=== PATIENT | male | born 1980 | race Hispanic/Latino ===

== ENCOUNTER 2019-07-10 10:21 | Emergency (ER) | payer SELFPAY ==
[~2019-07-10 10:21] MED LIST: ALBU6.7H9 IH; AMOX-429 PO; SULF1TAB42 PO; TYL3 PO
[2019-07-10] MEDS ORDERED: DIAZEPAM 5 MG TABLET ONE (10:49)
[2019-07-10] MEDS ORDERED: ASPIRIN 325 MG TABLET ONE (10:49)
[2019-07-10 11:07] LABS: BASOPHILS % (AUTO) 0.8 % (0.0-5.0); EOSINOPHILS % (AUTO) 0.7 % (0.0-8.0); HEMATOCRIT 36.7 % (42-54); LYMPHOCYTES % (AUTO) 20.2 % (21.0-51.0); MEAN CORPUSCULAR HEMOGLOBIN 33.5 pg (27.0-33.0); MEAN CORPUSCULAR HGB CONC 33.9 g/dL (32.0-36.0); MEAN CORPUSCULAR VOLUME 99.1 fL (79-99); MONOCYTES % (AUTO) 15.5 % (3.0-13.0); NEUTROPHILS % (AUTO) 62.8 % (40.0-77.0); NUCLEATED RED BLOOD CELLS 0.1 % (0.0-0.19); PLATELET COUNT (AUTO) 95 K/uL (130-400); RED CELL DISTRIBUTION WIDTH 15.1 % (11.0-15.5); WHITE BLOOD COUNT (AUTO) 5.8 K/uL (4.8-10.8)
[2019-07-10 11:18] LABS: AMPHET/METH SCREEN,URINE NEGATIVE (NEGATIVE); BARBITURATE SCREEN, URINE NEGATIVE (NEGATIVE); BENZODIAZEPINES SCREEN,URINE NEGATIVE (NEGATIVE); CANNABINOID SCREEN,URINE POSITIVE (NEGATIVE); COCAINE SCREEN,URINE NEGATIVE (NEGATIVE); OPIATE SCREEN,URINE NEGATIVE (NEGATIVE); PHENCYCLIDINE SCREEN,URINE NEGATIVE (NEGATIVE)
[2019-07-10 11:19] LABS: CREATININE 0.8 mg/dL (0.5-1.5); POTASSIUM 3.4 mmol/L (3.5-5.1)
[2019-07-10 11:25] LABS: ALBUMIN 2.8 g/dL (3.5-5.0); BILIRUBIN,TOTAL 1.9 mg/dL (0.2-1.0); TOTAL PROTEIN, SERUM 8.2 g/dL (6.0-8.3)
[2019-07-10 12:02] LABS: B-TYPE NATRIURETIC PEPTIDE 203 pg/mL (0-100)
== END 2019-07-10 13:16 | disposition home or self-care (01) ==
LOC: EDH 10:21
DX: R07.89 Other chest pain (principal); J45.909 Unspecified asthma, uncomplicated; F12.10 Cannabis abuse, uncomplicated; Z72.0 Tobacco use
CPT/HCPCS: 36415; 71045; 80053; 80305; 82550; 83880; 84484; 85025; 93005

== ENCOUNTER 2019-10-31 10:10 | Emergency (ER) | payer OTHER ==
[2019-10-31 10:44] LABS: BASOPHILS % (AUTO) 0.4 % (0.0-5.0); EOSINOPHILS % (AUTO) 2.5 % (0.0-8.0); HEMATOCRIT 29.3 % (42-54); LYMPHOCYTES % (AUTO) 37.8 % (21.0-51.0); MEAN CORPUSCULAR HEMOGLOBIN 28.9 pg (27.0-33.0); MEAN CORPUSCULAR HGB CONC 32.4 g/dL (32.0-36.0); MEAN CORPUSCULAR VOLUME 89.1 fL (79-99); MONOCYTES % (AUTO) 15.6 % (3.0-13.0); NEUTROPHILS % (AUTO) 43.5 % (40.0-77.0); PLATELET COUNT (AUTO) 87 K/uL (130-400); RED BLOOD CELL COUNT(AUTO) 3.29 MIL/uL (4.50-6.20); RED CELL DISTRIBUTION WIDTH 17.2 % (11.0-15.5); WHITE BLOOD COUNT (AUTO) 8.9 K/uL (4.8-10.8)
[2019-10-31 10:55] LABS: CREATININE 0.7 mg/dL (0.5-1.5); POTASSIUM 4.3 mmol/L (3.5-5.1)
[2019-10-31 10:59] LABS: ALBUMIN 2.2 g/dL (3.5-5.0); BILIRUBIN,DIRECT 0.6 mg/dL (0.0-0.3); TOTAL PROTEIN, SERUM 8.2 g/dL (6.0-8.3)
[2019-10-31 15:50] LABS: INR 1.61 (0.85-1.15); PROTHROMBIN TIME 16.6 SEC (9.6-11.6)
[2019-10-31] MEDS ORDERED: THIAMINE HCL 100 MG/ML 2ML VIAL ONE (16:12)
== END 2019-10-31 16:35 | disposition home or self-care (01) ==
LOC: EDH 10:10
DX: R18.8 Other ascites (principal); K74.60 Unspecified cirrhosis of liver; J45.909 Unspecified asthma, uncomplicated
CPT/HCPCS: 36415; 80053; 80076; 85025; 85610; 85730; 96372; 99284; J3411

== ENCOUNTER 2020-11-06 21:31 | Emergency (ER) | payer MEDICAID ==
[2020-11-06 22:31] LABS: BASOPHILS % (AUTO) 0.8 % (0.0-5.0); EOSINOPHILS % (AUTO) 1.3 % (0.0-8.0); HEMATOCRIT 26.6 % (42-54); MEAN CORPUSCULAR HEMOGLOBIN 25.7 pg (27.0-33.0); MEAN CORPUSCULAR VOLUME 80.4 fL (79-99); NEUTROPHILS % (AUTO) 58.5 % (40.0-77.0); PLATELET COUNT (AUTO) 89 K/uL (130-400); RED BLOOD CELL COUNT(AUTO) 3.31 MIL/uL (4.50-6.20); RED CELL DISTRIBUTION WIDTH 19.8 % (11.0-15.5); WHITE BLOOD COUNT (AUTO) 4.8 K/uL (4.8-10.8)
[2020-11-06 22:42] LABS: INR 1.92 (0.85-1.15); PROTHROMBIN TIME 19.4 SEC (9.6-11.6)
[2020-11-06 22:43] LABS: PARTIAL THROMBOPLASTIN TIME 39.2 SEC (26.3-35.5)
[2020-11-06 22:45] LABS: ALBUMIN 1.4 g/dL (3.5-5.0); BILIRUBIN,TOTAL 2.7 mg/dL (0.2-1.0); CREATININE 0.8 mg/dL (0.5-1.5); TOTAL PROTEIN, SERUM 7.6 g/dL (6.0-8.3)
[2020-11-06 22:52] LABS: POTASSIUM 2.6 mmol/L (3.5-5.1)
[2020-11-06] MEDS ORDERED: LACTULOSE 20 GM/30 ML UDCUP ONE (23:28)
[2020-11-06] MEDS ORDERED: POTASSIUM BICARB/CIT AC 25 MEQ TABLET.EFF ONE (23:29)
[2020-11-06] MEDS ORDERED: THIAMINE HCL 100 MG/ML 2ML VIAL ONE (23:29)
[2020-11-06] MEDS ORDERED: ACETAMINOPHEN 500 MG TABLET ONE (23:29)
== END 2020-11-06 23:42 | disposition home or self-care (01) ==
LOC: EDH 21:31
DX: K42.9 Umbilical hernia without obstruction or gangrene (principal); F10.220 Alcohol dependence with intoxication, uncomplicated; E87.6 Hypokalemia; K74.69 Other cirrhosis of liver; J45.909 Unspecified asthma, uncomplicated
CPT/HCPCS: 36415; 74176; 80053; 82140; 82150; 82550; 83690; 84484; 85025; 85610; 85730; 93005; 96374; 99285; J3411